=== PATIENT | male | born 1950 | race Caucasian/White ===

== ENCOUNTER 2020-02-12 17:28 | Emergency (ER) | payer OTHER ==
[~2020-02-12] VITALS: Ht 175.3 cm; Wt 113.4 kg
[2020-02-12] MEDS ORDERED: AMOCLA875 PO (20:41)
[2020-02-12] MEDS ORDERED: Norco 5-325 Ta1 EACH PO (20:41)
== END 2020-02-12 21:13 | disposition home or self-care (01) ==
LOC: ER 17:28
DX: S61.215A Laceration without foreign body of left ring finger without damage to nail, initial encounter (principal); S61.213A Laceration without foreign body of left middle finger without damage to nail, initial encounter; Z23 Encounter for immunization; W27.0XXA Contact with workbench tool, initial encounter
CPT/HCPCS: 12002; 73120; 90471; 90714; 96365-59; 96372-59; 99283-25; A9270; J0690; J3010

== ENCOUNTER 2025-08-06 10:31 | Emergency (ER) | payer OTHER ==
[~2025-08-06] VITALS: Ht 175.3 cm; Wt 104.3 kg
[~2025-08-06 10:31] MED LIST: AMOCLA875 PO; Norco 5-325 Ta1 EACH PO
[2025-08-06 10:38] VITALS: BP 144/65
[2025-08-06] MEDS ORDERED: Percocet 5-3251 EACH PO ×2 (12:45→14:01)
[2025-08-06] MEDS ORDERED: AMOCLA875 PO ×2 (12:45→14:01)
== END 2025-08-06 13:13 | disposition home or self-care (01) ==
LOC: ER 10:31
DX: S51.851A Open bite of right forearm, initial encounter (principal); W54.0XXA Bitten by dog, initial encounter
CPT/HCPCS: 12032; 73090; 99283-25